=== PATIENT | male | born 1965 | race Caucasian/White ===

== ENCOUNTER 2018-12-15 05:40 | Inpatient (IN) | payer MEDICAID, OTHER ==
[2018-12-15 06:39] LABS: ADD MAN DIFF? NO
[2018-12-15] MEDS: KETOROLAC 30 MG INJ IV (06:42)
[2018-12-15] MEDS: SODIUM CHLORIDE 0.9% 1L BAG IV* (06:42)
[2018-12-15] MEDS: ONDANSETRON 4 MG INJ IV (06:42)
[2018-12-15 06:45] LABS: BASOPHILS % 0.1 % (0.0-2.0); HEMOGLOBIN 14.8 g/dl (14.0-18.0); LYMPHOCYTES # 1.5 10^3/ul (0.8-2.9); LYMPHOCYTES % 7.4 % (15.0-51.0); MEAN CORPUSCULAR HEMOGLOBIN 29.7 pg (29.0-33.0); MEAN CORPUSCULAR HGB CONC 34.4 g/dl (32.0-37.0); MEAN CORPUSCULAR VOLUME 86.2 fl (82.0-101.0); MEAN PLATELET VOLUME 9.6 fl (7.4-10.4); MONOCYTE # 1.3 10^3/ul (0.3-0.9); MONOCYTES % 6.1 % (0.0-11.0); NEUTROPHIL # 17.7 10^3/ul (1.6-7.5); NEUTROPHILS % 85.9 % (39.0-77.0); PLATELET COUNT 259 10^3/UL (140-415); RED BLOOD COUNT 4.99 10^6/ul (4.70-6.10); RED CELL DISTRIBUTION WIDTH 13.1 % (11.5-14.5)
[2018-12-15 06:45] LABS: WHITE BLOOD COUNT 20.6 10^3/ul (4.8-10.8)
[2018-12-15 06:53] LABS: ADD UMIC YES; UR ASCORBIC ACID NEGATIVE (NEGATIVE); UR BILIRUBIN (Dip) NEGATIVE (NEGATIVE); UR BLOOD (Dip) NEGATIVE (NEGATIVE); UR CLARITY CLEAR (CLEAR); UR COLOR YELLOW (YELLOW); UR GLUCOSE (Dip) NEGATIVE (NEGATIVE); UR KETONES (Dip) TRACE mg/dL (NEGATIVE); UR LEUKOCYTE ESTERASE (Dip) 2+ Leu/ul (NEGATIVE); UR MUCUS FEW /HPF (NONE SEEN); UR NITRITE (Dip) NEGATIVE (NEGATIVE); UR RBC 4 /HPF (0-5); UR SPECIFIC GRAVITY (Dip) 1.018 (1.003-1.030); UR TOTAL PROTEIN (Dip) NEGATIVE (NEGATIVE); UR UROBILINOGEN (Dip) NEGATIVE (NEGATIVE); UR WBC 45 /HPF (0-5)
[2018-12-15 07:04] LABS: ALANINE AMINOTRANSFERASE 25 IU/L (13-69); ALBUMIN 4.2 g/dl (3.3-4.9); ALBUMIN/GLOBULIN RATIO 1.05; ALKALINE PHOSPHATASE 65 IU/L (42-121); ANION GAP 10 (5-13); ASPARTATE AMINO TRANSFERASE 22 IU/L (15-46); BILIRUBIN,INDIRECT 1.1 mg/dl (0-1.1); BILIRUBIN,TOTAL 1.1 mg/dl (0.2-1.3); BLOOD UREA NITROGEN 11 mg/dl (7-20); CALCIUM 9.4 mg/dl (8.4-10.2); CARBON DIOXIDE 22 mmol/L (21-31); CHLORIDE 106 mmol/L (97-110); CREATININE 1.04 mg/dl (0.61-1.24); Estimated GFR > 60 mL/min (>60); GLUCOSE 138 mg/dl (70-220); LIPASE 38 U/L (23-300); POTASSIUM 3.8 mmol/L (3.5-5.1); PROTIME 13.3 Sec (11.9-14.9); SODIUM 138 mmol/L (135-144); TOTAL PROTEIN 8.2 g/dl (6.1-8.1)
[2018-12-15 07:05] LABS: PARTIAL THROMBOPLASTIN TIME 26.8 Sec (23.0-35.0)
[2018-12-15] MEDS: SOD CHLORIDE 0.9% 100 ML (07:41)
[2018-12-15] MEDS: IOHEXOL 300MG/ML 150 ML BTL (07:41)
[2018-12-15] MEDS: CEFTRIAXONE 1 GM/50 ML (PMX) 50 ML IVPB (08:41)
[2018-12-15 11:02] LABS: LACTIC ACID 0.9 mmol/L (0.5-2.0)
[2018-12-15] MEDS ORDERED: NITROGLYCERIN (SL) 0.4 MG TAB SL (12:00)
[2018-12-15] MEDS ORDERED: DOCUSATE SODIUM 100 MG CAP PO (12:00)
[2018-12-15] MEDS ORDERED: hydrALAzine 20 MG INJ IV (12:00)
[2018-12-15] MEDS ORDERED: LORAZEPAM 2 MG INJ IV (12:00)
[2018-12-15] MEDS ORDERED: ACETAMINOPHEN 325 MG TAB PO (12:00)
[2018-12-15] MEDS ORDERED: ALBUTEROL/IPRATROPIUM (NEB) 3 ML AMP HHN (12:00)
[2018-12-15] MEDS ORDERED: MAGNESIUM HYDROXIDE 30ML CUP PO (12:00)
[2018-12-15] MEDS ORDERED: NACL 0.9% 3 ML SYG IV (12:00)
[2018-12-15] MEDS ORDERED: ONDANSETRON 4 MG INJ IV ×2 (12:00)
[2018-12-15] MEDS ORDERED: morphine 2 MG INJ IV (12:00)
[2018-12-15 12:45] LABS: FREE T4 (FREE THYROXINE) 0.96 ng/dl (0.64-1.79)
[2018-12-15] MEDS: SOD CHLORIDE 0.9% 1,000 ML IV ×2 (16:44→21:55)
[2018-12-15] MEDS: ACETAMINOPHEN 325 MG TAB PO (17:00)
[2018-12-15 17:42] LABS: LACTIC ACID 1.4 mmol/L (0.5-2.0)
[2018-12-15 18:44] LABS: LACTIC ACID 0.9 mmol/L (0.5-2.0)
[2018-12-15] MEDS: CEFEPIME 2GM/50 ML (PMX) 50 ML IVPB (21:57)
[2018-12-15] MEDS: HEPARIN 5,000 UNIT/1 ML VIAL SC (21:59)
[2018-12-16] MEDS: ACETAMINOPHEN 325 MG TAB PO ×2 (02:19→09:25)
[2018-12-16] MEDS: SOD CHLORIDE 0.9% 1,000 ML IV ×3 (03:55→15:25)
[2018-12-16 06:16] LABS: ADD MAN DIFF? NO
[2018-12-16 06:24] LABS: WHITE BLOOD COUNT 16.6 10^3/ul (4.8-10.8)
[2018-12-16 06:24] LABS: BASOPHILS % 0.2 % (0.0-2.0); EOSINOPHILS % 0.2 % (0.0-7.0); HEMATOCRIT 38.6 % (42.0-52.0); HEMOGLOBIN 12.7 g/dl (14.0-18.0); LYMPHOCYTES # 2.7 10^3/ul (0.8-2.9); MEAN CORPUSCULAR HEMOGLOBIN 29.7 pg (29.0-33.0); MEAN CORPUSCULAR HGB CONC 32.9 g/dl (32.0-37.0); MEAN CORPUSCULAR VOLUME 90.2 fl (82.0-101.0); MEAN PLATELET VOLUME 9.7 fl (7.4-10.4); MONOCYTE # 1.1 10^3/ul (0.3-0.9); MONOCYTES % 6.5 % (0.0-11.0); NEUTROPHIL # 12.7 10^3/ul (1.6-7.5); NEUTROPHILS % 76.6 % (39.0-77.0); PLATELET COUNT 212 10^3/UL (140-415); RED BLOOD COUNT 4.28 10^6/ul (4.70-6.10); RED CELL DISTRIBUTION WIDTH 13.5 % (11.5-14.5)
[2018-12-16 06:47] LABS: HEMOGLOBIN A1C 5.5 % (0-5.9)
[2018-12-16 06:55] LABS: ANION GAP 6 (5-13); BLOOD UREA NITROGEN 11 mg/dl (7-20); CALCIUM 8.3 mg/dl (8.4-10.2); CARBON DIOXIDE 26 mmol/L (21-31); CHLORIDE 109 mmol/L (97-110); CREATININE 1.06 mg/dl (0.61-1.24); Estimated GFR > 60 mL/min (>60); GLUCOSE 101 mg/dl (70-220); MAGNESIUM 2.1 mg/dl (1.7-2.5); PHOSPHORUS 2.9 mg/dl (2.5-4.9); POTASSIUM 4.1 mmol/L (3.5-5.1); SODIUM 141 mmol/L (135-144)
[2018-12-16 08:24] LABS: CHOL/HDL RATIO 7.1 RATIO; HDL CHOLESTEROL 25 mg/dl (28-71); LDL CHOLESTEROL,CALCULATED 105 mg/dl; TRIGLYCERIDES 246 mg/dl (0-149)
[2018-12-16 08:24] LABS: CHOLESTEROL 179 mg/dl (100-200)
[2018-12-16] MEDS: CEFEPIME 2GM/50 ML (PMX) 50 ML IVPB (08:52)
[2018-12-16 08:56] LABS: THYROID STIMULATING HORMONE 0.968 MIU/L (0.465-4.680)
[2018-12-16] MEDS: HEPARIN 5,000 UNIT/1 ML VIAL SC ×2 (08:57→20:55)
[2018-12-16] MEDS: GEMFIBROZIL 600 MG TAB PO ×2 (13:46→20:54)
[2018-12-16] MEDS: CEFTRIAXONE 1 GM/50 ML (PMX) 50 ML IVPB (14:23)
[2018-12-16] MEDS: HYDROCODONE/APAP (5/325) TAB PO (19:51)
[2018-12-17] MEDS: SOD CHLORIDE 0.9% 1,000 ML IV ×2 (02:12→11:38)
[2018-12-17 06:30] LABS: ADD MAN DIFF? NO
[2018-12-17 06:31] LABS: WHITE BLOOD COUNT 10.8 10^3/ul (4.8-10.8)
[2018-12-17 06:31] LABS: BASOPHILS % 0.3 % (0.0-2.0); EOSINOPHILS # 0.1 10^3/ul (0.0-0.5); EOSINOPHILS % 1.1 % (0.0-7.0); HEMATOCRIT 35.4 % (42.0-52.0); HEMOGLOBIN 11.9 g/dl (14.0-18.0); LYMPHOCYTES # 2.1 10^3/ul (0.8-2.9); MEAN CORPUSCULAR HEMOGLOBIN 30.2 pg (29.0-33.0); MEAN CORPUSCULAR HGB CONC 33.6 g/dl (32.0-37.0); MEAN CORPUSCULAR VOLUME 89.8 fl (82.0-101.0); MEAN PLATELET VOLUME 10.4 fl (7.4-10.4); MONOCYTE # 0.8 10^3/ul (0.3-0.9); MONOCYTES % 7.3 % (0.0-11.0); NEUTROPHIL # 7.8 10^3/ul (1.6-7.5); PLATELET COUNT 191 10^3/UL (140-415); RED BLOOD COUNT 3.94 10^6/ul (4.70-6.10); RED CELL DISTRIBUTION WIDTH 13.2 % (11.5-14.5)
[2018-12-17 06:57] LABS: ANION GAP 7 (5-13); BLOOD UREA NITROGEN 9 mg/dl (7-20); CALCIUM 8.1 mg/dl (8.4-10.2); CARBON DIOXIDE 23 mmol/L (21-31); CHLORIDE 109 mmol/L (97-110); Estimated GFR > 60 mL/min (>60); GLUCOSE 90 mg/dl (70-220); SODIUM 139 mmol/L (135-144)
[2018-12-17] MEDS: GEMFIBROZIL 600 MG TAB PO (09:26)
[2018-12-17] MEDS: HEPARIN 5,000 UNIT/1 ML VIAL SC (09:27)
== END 2018-12-17 14:07 | disposition home or self-care (01) | DRG 872 ==
LOC: FTE 05:40 → PP2 11:53
DX: A41.9 Sepsis, unspecified organism (principal); N39.0 Urinary tract infection, site not specified; E66.9 Obesity, unspecified; Z68.29 Body mass index [BMI] 29.0-29.9, adult; N40.0 Benign prostatic hyperplasia without lower urinary tract symptoms; N50.3 Cyst of epididymis
CPT/HCPCS: 36415; 74177; 76870; 80048; 80053; 80061; 81001; 83036; 83605; 83690; 83735; 84100; 84439; 84443; 85025; 85610; 85730; 87040-91; 87086; 87591; 96361; 96365; 96375; 99285-25